=== PATIENT | male | born 1995 | race Caucasian/White ===

== ENCOUNTER 2018-07-06 23:58 | Emergency (ER) | payer BC ==
[~2018-07-06] VITALS: Ht 185.4 cm; Wt 80.1 kg
[2018-07-07] VITALS: Ht 185.4 cm; Wt 80.1 kg
[2018-07-07 01:22] VITALS: BP 109/62
== END 2018-07-07 01:22 | disposition home or self-care (01) ==
LOC: ED 23:58
DX: R07.89 Other chest pain (principal); F17.210 Nicotine dependence, cigarettes, uncomplicated
CPT/HCPCS: J1885